=== PATIENT | female | born 1995 | race Caucasian/White ===

== ENCOUNTER 2025-06-11 10:00 | Emergency (ER) | payer OTHER, SELFPAY ==
--- OUTSIDE RECORDS SUMMARY | 2025-05-06 11:15 | XMS_ITS | Encounter Summary ---
Author Organization [employer] tem Address [id number] [address] [place] [address] Care Team Providers Care Bank Boss Name Role Phone Helene Shoemaker Primary Care Provide r Reason for Referral * Diagnostic Imaging (Routine) - Denied Specialty Diagnoses / Procedures Referred By Contac t Referred To Contact Radiology Diagnoses Chronic bilateral low back pain with bilateral sciatica Procedures MR lumbar spine without contrast Helene Shoemaker APRN-CNP [address] [place] [address] Phone: tel: fax: Referral ID Status Reason Start Date Expiration Date Visits Re quested Visits Authorized [id number] Denied 05/06/2025 05/06/2026 1 0 * Consultation (Routine) - Pending Review Specialty Diagnoses / Procedures Referred By Contac t Referred To Contact Vascular Surgery Diagnoses Varicose veins of leg with pain, bilateral Helene Shoemaker APRN-CNP [address] [place] [address] Phone: tel: fax: Vera Baca, [place] [address] Phone: tel:[phone] fax: Referral ID Status Reason Start Date Expiration Date Visits Requested Visits Authorized [id number] Pending Review Specialty Services Required 05/06/2025 05/06/2026 1 1 * Vascular (Routine) - Closed Specialty Diagnoses / Procedures Referred By Mya pittman Referred To Contact Diagnoses Varicose veins of leg with pain, bilateral Procedures Vas venous duplex insufficiency lwr bi Helene Shoemaker APRN-CNP [address] [place] [address] Phone: tel: fax: Referral ID Status Reason Start Date Expiration Date Visits Re quested Visits Authorized [id number] Closed 05/06/2025 05/06/2026 1 1 Reason for Visit * Reason Comments Nasal Congestion Medication is not he lping. Leg Injury Right leg veins swol tammi and get hot. Encounter Details Date Type Department Care Team (Late st Contact Info) Description 05/06/2025 11:15 AM EDT Office Visit [facility] [address] [place] [id number] Helene Shoemaker APRN-CNP [address], [place] [id number] Nasal congestion (Primary Dx); Varicose veins of leg with pain, bilateral; Chronic bilateral low back pain with bilateral sciatica Social History Tobacco Use Types Packs/Day Years Used Date Smoking Tobacco: Never Smokeless Tobacco: Never Alcohol Use Standard Drinks/Week Comments Not Currently 0 (1 standard drink = 0.6 oz pur e alcohol) occasionally AUDIT-C Answer Date Recorded Frequency of Alcohol Consumption Never 09/29/2019 Average Number of Drinks Not on file 020 Frequency of Binge Drinking Not on file 08/2019 PHQ-2 Answer Date Recorded Total Score 0 05/06/2025 Childcare Answer Date Recorded Childcare Unknown 02/08/2019 Employment Answer Date Recorded Employment Unknown 02/08/2019 Hunger Screening Answer Date Recorded Within the past 12 months we worried whether our food would run out before we got money to buy more. Never True 05/06/2025 Within the past 12 months th e food we bought just didn't last and we didn't have money to get more. Never True 05/06/2025 Purpose - Life Answer Date Recorded Purpose and direction in life Unknown Comments No Sex and Gender Information Value Date Recorded Sex Assigned at Not on file Legal Sex Female 3:24 PM EDT Gender Identity Not on file Sexual Orientation Not on file documented as of this encounter Last Filed Vital Signs Vital Sign Reading Time Taken Comments Blood Pressure 116/62 05/06/2025 11:12 AM EDT Pulse 79 05/06/2025 11:12 AM EDT Temperature 37.1 C (98.8 F) 05/06/2025 11:12 AM EDT Respiratory Rate - - Oxygen Saturation 98% 05/06/2025 11:12 AM EDT Inhaled Oxygen Concentration - - Weight 92.6 kg (204 lb 3.2 oz) 05/06/2025 11:12 AM EDT Height 165.1 cm (5' 5 ) 05/06/2025 11:12 AM EDT Body Mass Index 33.98 05/06/2025 11:12 AM EDT documented in this encounter Patient Instructions * Attachments The following attachments cannot be sent through Care Everywhere. * Treatment of Varicose Veins of the Leg (Azeri) documented in this encounter Progress Notes * Helene Shoemaker APRN-ISAAC - 05/06/2025 11:15 AM EDT Images from the original note were not included. [id number] [facility] [id number] SUBJECTIVE: Patient ID: Alice Hurd is a 29 y.o. female. Patient presents to the office for complaints of nasal congestion. States flonase is not helping but has not been tucking her chin when using the flonase, will also have her add zyrtec, if not improvement will send to ENT. She also has complaints of varicose veins in her bilateral thighs worse on the right and at times it is painful and feels hot. Will get venous insufficiency studies and refer to vascular. She also complains of numbness in her legs when she gets on the floor to play with her children or she kneels down. Has lower back pain for awhile and went to PT in August but felt it didnot help so she stopped going. Will get MRI of lumbar spine to rule out spinal stenosis. Nasal Congestion Associated symptoms include congestion. Pertinent negatives include no coughing, ear pain, neck pain, shortness of breath, sinus pressure or sore throat. The following portions of the patient's history were reviewed and updated as appropriate: allergies, current medications, past family history, past medical history, past social history, past surgicalhistory and problem list. REVIEW OF SYSTEMS: Review of Systems Constitutional: Negative for fatigue, fever and unexpected weight change. HENT: Positive for congestion. Negative for ear pain, sinus pressure, sinus pain and sore throat. Eyes: Negative for photophobia, pain, discharge and visual disturbance. Respiratory: Negative for cough and shortness of breath. Cardiovascular: Negative for chest pain, palpitations and leg swelling. Gastrointestinal: Negative for abdominal pain, diarrhea, nausea and vomiting. Endocrine: Negative for polydipsia, polyphagia and polyuria. Genitourinary: Negative for difficulty urinating, frequency, hematuria and urgency. Musculoskeletal: Positive for back pain. Negative for arthralgias, gait problem, joint swelling andneck pain. Skin: Negative for pallor and rash. Neurological: Positive for numbness. Negative for dizziness, weakness and light-headedness. Psychiatric/Behavioral: Negative for sleep disturbance. The patient is not nervous/anxious. PHYSICAL EXAMINATION: Vitals: 05/06/25 1112 BP: 116/62 Pulse: 79 Temp: 37.1 ??C (98.8 ??F) TempSrc: Temporal SpO2: 98% Weight: 92.6 kg (204 lb 3.2 oz) Height: 165.1 cm (5' 5 ) Physical Exam Constitutional: Appearance: She is well-developed. HENT: Head: Normocephalic and atraumatic. Right Ear: External ear normal. Left Ear: External ear normal. Nose: Congestion present. Eyes: Conjunctiva/sclera: Conjunctivae normal. Pupils: Pupils are equal, round, and reactive to light. Cardiovascular: Rate and Rhythm: Normal rate and regular rhythm. Heart sounds: Normal heart sounds. Pulmonary: Effort: Pulmonary effort is normal. Breath sounds: Normal breath sounds. Musculoskeletal: Cervical back: Normal range of motion. Skin: General: Skin is warm and dry. Comments: Varicosities on right lateral thigh Neurological: Mental Status: She is alert and oriented to person, place, and time. Psychiatric: Mood and Affect: Mood normal. ASSESSMENT/PLAN: Alice was seen today for nasal congestion and leg injury. Diagnoses and all orders for this visit: Nasal congestion Varicose veins of leg with pain, bilateral - Vas venous duplex insufficiency lwr bi; Future - [facility] [place], [place]; Future Chronic bilateral low back pain with bilateral sciatica - MR lumbar spine without contrast; Future Other orders - cetirizine (ZyrTEC) 10 mg tablet; Take 1 tablet (10 mg total) by mouth in the morning. Follow-up: Zyrtec and flonase Venous insufficiency studies-will call with results Referral vascular MRI lumbar spine-will call with results Follow up with routine appointment Patient noted to have elevated BMI and the following intervention(s) were applied: encouragement toexercise. KHADAR Bennett 05/06/25 1230 * Trudy Main CMA - 05/06/2025 11:15 AM EDT Mri denied because she did not due six weeks of PT. Placed order, will need to complete the six weeks in order to get the MRI. Patient has started PT and will call at 6 wks if pain has not improved. documented in this encounter Plan of Treatment Upcoming Encounters Date Type Department Care Team (Late st Contact Info) Description 06/18/2025 8:30 AM EDT Telemedicine [facility] Neurology, A Department of [facility] [address] [facility] [employer] [address] [address] Olena Joseph APRN-CNP [address] [employer] [address] [id number] 09/23/2025 11:00 AM EST Office Visit [facility] [place] [address] [place] [address] Vera Baca, DO [address] [facility] [address] [place] [address] Scheduled Orders Name Type Priority Associated Diagnoses Orde r Schedule MR lumbar spine without contrast Imaging Routine Chronic bilateral low back pain with bilateral sciatica Expected: 07/29/2025, Expires: 05/06/2026 Scheduled Referrals Name Type Priority Associated Diagnoses Order Schedule [facility] [place], [place] Outpatient Referral Routine Varicose veins of leg with pain, bilateral 1 Occurrences starting 05/06/2025 until 05/06/2026 documented as of this encounter Results * Vas venous duplex insufficiency lwr bi (05/31/2025 2:17 PM EDT) Anatomical Region Laterality Modality Vascular Bilateral Ultrasound 05/31/2025 2:33 PM EDT Narrative 05/31/2025 2:47 PM EDT Right: Lower extremity deep veins are compressible with spontaneous phasic spectral Doppler waveforms; superficial veins are compressible without intraluminal content. Saphenopopliteal junction was not visualized, intersaphenous vein was noted. Venous reflux time >1000 ms is noted in the common femoral vein. Saphenofemoral junction was noted with reflux time >500 ms. Accessory saphenous vein with 9213 ms reflux time in the thigh with diameter of 4.7 mm with 5.5 cm straight segment from SFJ with associated varicose veins through the anterolateral thigh, extending down into the calf. Left: Lower extremity deep veins are compressible with spontaneous phasic spectral Doppler waveforms; superficial veins are compressible without intraluminal content. Saphenopopliteal junction noted. Venous reflux time >1000 ms is noted in the popliteal vein. Saphenofemoral junction was noted with reflux time >500 ms. Great saphenous vein with 567 ms reflux time in the mid medial calf. Saphenopopliteal and multilevel small saphenous vein reflux >500 ms. Gis Specialist vein with 800 ms reflux time and 4.9 mm diameter noted in the mid posterior calf. General: This examination was performed in the upright position. Conclusions: BILATERAL:No evidence of deep or superficial vein thrombosis of the lower extremity.RIGHT:Common femoral deep vein reflux.Saphenofemoral junction and associated anterior saphenous superficial vein reflux.LEFT:Saphenofemoral junction and great saphenous superficial vein reflux.Saphenopopliteal junction, small saphenous, superficial vein reflux.Popliteal deep vein reflux.Gis Specialist vein reflux in the mid posterior calf. Procedure Note Mendoza Solano MD - 05/31/2025 Right: Lower extremity deep veins are compressible with spontaneous phasicspectral Doppler waveforms; superficial veins are compressible withoutintraluminal content. Saphenopopliteal junction was not visualized,intersaphenous vein was noted. Venous reflux time >1000 ms is noted in the common femoral vein. Saphenofemoraljunction was noted with reflux time >500 ms. Accessory saphenous vein [id number] ms reflux time in the thigh with diameter of 4.7 mm with 5.5 cmstraight segment from SFJ with associated varicose veins through the anterolateral thigh, extending downinto the calf. Left: Lower extremity deep veins are compressible with spontaneous phasicspectral Doppler waveforms; superficial veins are compressible withoutintraluminal content. Saphenopopliteal junction noted. Venous reflux time>1000 ms is noted in the popliteal vein. Saphenofemoral junction was noted with reflux time >500 ms. Greatsaphenous vein with 567 ms reflux time in the mid medial calf.Saphenopopliteal and multilevel small saphenous vein reflux >500 ms.Gis Specialist vein with 800 ms reflux time and 4.9 mm diameter noted in the mid posterior calf. General: This examination was performed in the upright position. Conclusions: BILATERAL:No evidence of deep or superficial vein thrombosisof the lower extremity.RIGHT:Common femoral deep veinreflux.Saphenofemoral junction and associated anterior saphenoussuperficial vein reflux.LEFT:Saphenofemoral junction and great saphenous superficial vein reflux.Saphenopopliteal junction, smallsaphenous, superficial vein reflux.Popliteal deep vein reflux.Perforatorvein reflux in the mid posterior calf. Helene Shoemaker SNACK STEWARD-BOOM TRUCK DRIVER CV VASCULAR ORDERABLE S Final Result documented in this encounter Visit Diagnoses Diagnosis Nasal congestion- Primary Other diseases of nasal cavity and sinuses Varicose veins of leg with pain, bilateral Chronic bilateral low back pain with bilateral sciatica Varicose veins of leg with pain, bilateral documented in this encounter Additional Health Concerns Assessment Noted Time PHQ-9 Depression Total Score: 0 05/06/20 11:12 AM EDT A Body Mass Index follow-up plan has been documented for the patient 05/06/2025 12:30 PM EDT documented as of this encounter Care Teams Bank Boss Relationship Specialty Start Date End Date Helene Shoemaker APRN-BOOM TRUCK DRIVER [address] [place] [address] PCP - General Family Medicine 02/05/25 documented as of this encounter
--- OUTSIDE RECORDS SUMMARY | 2025-05-31 12:54 | XMS_ITS | Encounter Summary ---
Author Organization [facility] tem Address [id number] [address] [place] [address] Care Team Providers Care Colon Therapist Name Role Phone Helene Shoemaker Primary Care Provide r Reason for Referral * Vascular (Routine) - Closed Specialty Diagnoses / Procedures Referred By Mya t Referred To Contact Diagnoses Varicose veins of leg with pain, bilateral Procedures Vas venous duplex insufficiency lwr bi Helene Shoemaker APRN-CNP [address] [place] [address] Phone: tel: fax: Referral ID Status Reason Start Date Expiration Date Visits Re quested Visits Authorized [id number] Closed 05/06/2025 05/06/2026 1 1 Reason for Visit * Vascular (Routine) - Closed Specialty Diagnoses / Procedures Referred By Mya pittman Referred To Contact Diagnoses Varicose veins of leg with pain, bilateral Procedures Vas venous duplex insufficiency lwr bi Helene Shoemaker APRN-CNP [address] [place] [address] Phone: tel: fax: Referral ID Status Reason Start Date Expiration Date Visits Re quested Visits Authorized [id number] Closed 05/06/2025 05/06/2026 1 1 Encounter Details Date Type Department Care Team (Latest Contact Info) Description 05/31/2025 12:54 PM EDT - 05/31/2025 11:59 PM EDT Hospital Encounter [facility] - Vascular [address] [place] [address] Varicose veins of leg with pain, bilateral Discharge Disposition: Home Social History Tobacco Use Types Packs/Day Years [...] on file documented as of this encounter Medications at Time of Discharge AJOVY AUTOINJECTOR 225 mg/1.5 mLIndications:Migrai ne without aura and without status migrainosus, not intractable,Vestibul ar migraine,Migraine variant Inject 1.5 mL (225 mg total) under the skin every 28 days. 1.5 mL 11 03/18/2025 clindamycin (CLEOCIN T) 1 % lotion APPLY 1 GRAM TO FACE TWICE DAILY 04/09/2025 fluticasone propionate (FLONASE) 50 mcg/actuation nasal spray INSTILL 1 SPRAY INTO EACH NOSTRIL IN THE MORNING 48 mL 1 12/13/2024 rimegepant (NURTEC ODT) 75 mg disintegrating tabletIndications:Mi graine without aura and without status migrainosus, not intractable,Vestibul ar migraine,Migraine variant Dissolve 1 tablet (75 mg total) on tongue daily as needed (migraine). 8 tablet 11 03/18/2025 cetirizine (ZyrTEC) 10 mg tablet Take 1 tablet (10 mg total) by mouth in the morning. 30 tablet 2 05/06/2025 documented as of this encounter Plan of Treatment Upcoming Encounters Date Type Department Care Team (Late st Contact Info) Description 06/18/2025 8:30 AM EDT Telemedicine [facility] Neurology, A Department of [facility] [address] [address] Olena Joseph, MANAGER GLOBAL-OUTSOLE ROUNDER [address] [address] 09/23/2025 11:00 AM EST Office Visit [facility] [address] [address] Vera Baca, [address] [facility] [address] [place] [id number] documented as of this encounter Procedures Procedure Name Priority Date/Time Associated Diagnosis Comments VASC VENOUS DUPLEX INSUFFICIENCY LOWER BILATERAL Routine 05/31/2025 2:17 PM EDT Varicose veins of leg with pain, bilateral documented in this encounter Results * Vas venous duplex [...] multilevel small saphenous vein reflux >500 ms. Rehabilitation Manager vein with 800 ms reflux time and [...] small saphenous, superficial vein reflux.Popliteal deep vein reflux.Rehabilitation Manager vein reflux in the mid posterior calf. Procedure Note Mendoza Solano MD - 05/31/2025 Right: Lower extremity deep veins are compressible with spontaneous phasicspectral Doppler waveforms; superficial veins are compressible withoutintraluminal content. Saphenopopliteal junction was not visualized,intersaphenous vein was noted. Venous reflux time >1000 ms is noted in the common femoral vein. Saphenofemoraljunction was noted with reflux time >500 ms. Accessory saphenous vein [id number] ms reflux time in the thigh with [...] and multilevel small saphenous vein reflux >500 ms.Rehabilitation Manager vein with 800 ms reflux time and [...] reflux.Perforatorvein reflux in the mid posterior calf. us Helene Shoemaker APRN-ISAAC CV VASCULAR ORDERABLE S Final Result documented in this encounter Visit Diagnoses Diagnosis Varicose veins of leg with pain, bilateral documented in this encounter Additional Health Concerns Assessment Noted Time PHQ-9 Depression Total Score: 0 05/06/20 11:12 AM EDT A Body Mass Index follow-up plan has been documented for the patient 05/06/2025 12:30 PM EDT documented as of this encounter Care Teams Colon Therapist Relationship Specialty Start Date End Date Helene Shoemaker APRN-CNP [address] [place] [address] PCP - General Family Medicine 02/05/25 documented as of this encounter
--- OUTSIDE RECORDS SUMMARY | 2025-06-06 10:20 | XMS_ITS | Continuity of Care Document ---
Author Organization [facility] Address [address] [place] [address] Phone Care Team Providers Care Flamer After Lasting Name Role Phone Alma Newton DO Primary Care Provider Danii Gonzales APRN Attending Provider [phone] Varsha Lopez APRN Attending Provider Care Teams Patient Care Team Team Status: Active Member Role Status Dates Alma Newton DO Primary Care Provider Active Visit Care Team Team Status: Inactive Member Role Status Dates Alma Newton DO Primary Care Provider Active Start: March 14, 2025 End: March 14, 2025 Danii Gonzales APRN Attending Provider Active Start: March 14, 2025 End: March 14, 2025 Patient Care Team Team Status: Inactive Member Role Status Dates Alma Newton DO Primary Care Provider Active Start: June 06, 2025 End: June 06, 2025 Varsha Lopez APRN Attending Provider Active Start: June 06, 2025 End: June 06, 2025 Chief Complaint and Reason for Visit Chief Complaint Admit Date Front right lower tooth pain March 14, 2025 4:00pm Sore throat June 06, 2025 1: 55pm Reason for Visit Admit Date Tooth pain March 14, 2025 4:00 pm Allergies, Adverse Reactions, Alerts Allergen Type Severity Reaction Last Updated Verified Status No Known Allergies Allergy Unknown June 06, 2025 1:5 7pm Yes Active Social History Smoking Status Status Start Date End Date Date of Observa tion Never smoked tobacco (finding) May 08, 2024 3:39pm Observation Status Observation Response Date of Response Legal Sex Female (finding) Sex Assigned At Female 1995 Problems Active Problems Medical Problem Onset Date Status History of migraine Unknown Active Influenza A Unknown Active Dizziness Unknown Active Depression Unknown Active Acute nasopharyngitis Unknown Active Acute bacterial pharyngitis Unknown Acti ve Medications Medication Status Dose Units Route Directions Qty Days St art Date Stop Date End Date Instructions Adherence Bupropion Hcl 150 mg tablet extended release 24 hr Active MG PO Octobe r 2024 12:00a m Complies with drug therapy Rimegepant (Nurtec Odt) 75 mg tablet,disi ntegrating Active 75 MG PO as needed Octobe r 2024 12:00a m Complies with drug therapy Ubrogepant (Ubrelvy) 100 mg tablet Discont inued MG PO January 07, 2025 12:00a m January 07, 2025 9:13a m Amitriptyli ne 10 mg tablet Discont inued MG PO January 07, 2025 12:00a m March 14, 2025 4:04p m Amoxicillin 400 mg/5 mL suspension for reconstitut ion Discont inued 500 MG PO Twice daily 125 10 January 07, 2025 12:00a m March 14, 2025 4:00p m Amoxicillin 400 mg/5 mL suspension for reconstitut ion Discont inued 1000 MG PO Twice daily 250 10 March 14, 2025 12:00a m Octob er 2024 2:02p m Procedures Procedure Date Performed Status Quick Strep (POC) June 06, 2025 completed Relevant Diagnostic Tests and/or Laboratory Data Microbiology Results Procedure Source Result Collection Date/Time Result Date/Time Result Comment Performing Site Quick Strep (POC) Throat June 06, 2025 2:04pm June 06, 2025 2:13pm Vital Signs Vital Reading Result Reference Range Collection Date/Time Height 65 [in_i] March 14, 2025 4:04pm Weight 90.03 kg March 14, 2025 4:04pm Body Temperature 98.6 [degF] 97.6-99.0 March 14, 2025 4:04pm Heart Rate 98 /min 60-100 March 14, 2025 4:04pm Respiratory rate 19 /min 12-March 14, 2025 4:04pm Oxygen saturation by Pulse oximetry 97 % 95-100 March 14, 2025 4:04 pm BP Systolic 122 mm[Hg] 100-140 March 14, 2025 4:04pm BP Diastolic 88 mm[Hg] 60-100 March 14, 2025 4:04pm BMI (Body Mass Index) 33.0 kg/m2 February 262024 4:04pm Height 65 [in_i] June 06 2:00pm Weight 92.98 kg June 06 2:00pm Body Temperature 97.9 [degF] 97.6-99.0 May 2:00pm Heart Rate 83 /min 60-100 June 06 2:00pm Respiratory rate 16 /min 12-24 May 2:00pm Oxygen saturation by Pulse oximetry 98 % 95-100 June 06, 2025 2: 00pm BP Systolic 104 mm[Hg] 100-140 June 06 2:00pm BP Diastolic 65 mm[Hg] 60-100 June 06 2:00pm BMI (Body Mass Index) 34.1 kg/m2 Octobe r 2024 2:00pm Advance Directives Advance Directive Response Recorded Date/ Time Advance Directives No April 3:29pm Insurance Providers Guarantor Alice Hurd Address [address] [place] [address] [place] [address] Contact Info. Home Phone: Payer Policy Id Subscriber's Name Subscriber Id Effective Date Expiration Date [employer] [id number] Alice Hurd [id number] Encounters Encounter Location(s) Arrival/Admit Date Discharge/Depart Date Provider(s) Departed Physician/Prov ider Office Visit -[facility] [place] March 14, 2025 4:00pm March 14, 2025 4:08pm Danii Gonzales APRN Departed Physician/Prov ider Office Visit -[facility] [place] June 06, 2025 1:55pm June 06, 2025 2:18pm Gray Mcneill APRN Recent Diagnosis Onset Date Admit Date Tooth pain Unknown March 14, 2025 4:00pm Assessments Diagnosis Onset Date Resolution Status Admit Date Tooth pain noneactive March 14 4:00pm Plan of Treatment Author Danii Gonzales [facility] Authored March 14, 2025 5:11 pm Discussed diagnosis with pat ron with patient today in office. Will treat with antibiotic. Reviewed allergies and recent antibiotic use with patient. Advised patient to take medication as directed, finish entire course, take with food and plenty of water. Encouraged warm salt water gargles, ice to area, ensure thin cloth barrier between skin, Tylenol/Motrin for pain, OTC topical medications such as Orajel. Advised to call dentist for follow-up appointment. Discussed S/S of worsening infection would will require immediate evaluation in ER. Patient verbalized understanding and agrees with treatment plan. Future Tests Future scheduled test information is unavailable Pending Tests Pending diagnostic test information is unavailable Future Visits Future appointment information is unavailable Referrals to Other Providers Referral information is unavailable Future Procedures Future procedure information is unavailable Future Medications Future medication information is unavailable Patient Instructions Patient instructions are unavailable
--- OUTSIDE RECORDS SUMMARY | 2025-06-10 09:00 | XMS_ITS | Encounter Summary ---
Author Organization [facility] Address [id number] [address] [place] [address] Care Team Providers Care Director Operations Broadcast Name Role Phone Helene Shoemaker NETWORK OPERATIONS MANAGER-[employer] BUSINESS INTELLIGENCE CONSULTANT Primary Care Provide r Reason for Visit * Reason Comments Varicose Veins New patient - testin g done * Consultation (Routine) - Pending Review Specialty Diagnoses / Procedures Referred By Mya pittman Referred To Contact Vascular Surgery Diagnoses Varicose veins of leg with pain, bilateral Helene Shoemaker APRN-S[employer] BUSINESS INTELLIGENCE CONSULTANT [address] [place] [address] Phone: tel: fax: Vera Baca DO [address] [place] [address] Phone: tel: fax: Referral ID Status Reason Start Date Expiration Date Visits Requested Visits Authorized [id number] Pending Review Specialty Services Required 05/06/2025 05/06/2026 1 1 Encounter Details Date Type Department Care Team (Latest Contact Info) Description 06/10/2025 9:00 AM EDT [facility] [address] [place] [address] Brooks Sim, NETWORK OPERATIONS MANAGER-[employer] BUSINESS INTELLIGENCE CONSULTANT [address] [facility] [place] [address] Venous insufficiency of lower extremity (Primary Dx); Varicose veins of leg with pain, bilateral Social History Tobacco Use Types Packs/Day Years Used Date Smoking Tobacco: Never Smokeless Tobacco: Never Tobacco Cessation:Counseling Given: Not Answered Alcohol Use Standard Drinks/Week Comments Not Currently [...] Sign Reading Time Taken Comments Blood Pressure 106/59 06/10/2025 9:16 AM EDT Pulse 76 06/10/2025 9:16 AM EDT Temperature - - Respiratory Rate - - Oxygen Saturation - - Inhaled Oxygen Concentration - - Weight 91.2 kg (201 lb) 06/10/2025 9:16 AM EDT Height - - Body Mass Index 33.45 05/06/2025 11:12 AM EDT documented in this encounter Progress Notes * Brooks Sim APRN-ISAAC - 06/10/2025 9:00 AM EDT Images from the original note were not included. [facility] [place] Irene [facility] [phone] Alice Hurd presents with discomfort in thier right lower extremity. These symptoms haveworsened the more she is on them. She states it is worse at the end of the day and intermittently relieved with rest and elevation. She describes her symptoms that include but not limited to feeling achy, itching, heaviness and occasional burning. They have have not compression therapy in the past to assist in the management of their symptoms. We did discuss today the function of the venous system and the differences between the deep and superficial system. We also discussed the recommended treatment for venous reflux includes compression therapy and elevation. If compression therapy fails to manage their symptoms or they worsen, there are possible interventions. Did recently have a venous insufficiency study completed prior to today's visit. The study does reflect significant reflux/insufficiency in the left saphenopopliteal junction,as well as deep system reflux in the popliteal. The right side did reveal saphenofemoral junction and accessory saphenous vein reflux with a prominent diameter of 4.7 mm. We did discuss possible intervention options for the right accessory saphenous vein with multiple phlebectomy and left saphenopopliteal junction. Chief Complaint Patient presents with Varicose Veins New patient - testing done Patient Active Problem List Diagnosis Delivery by section of full-term infant Nasal congestion Single delivery by Cervicalgia Chronic daily headache Trapezius muscle spasm Tension headache Migraine without aura and without status migrainosus, not intractable Migraine variant Vestibular migraine Anxiety Herpesviral infection, unspecified Insomnia LGSIL on Pap smear of cervix Mixed anxiety and depressive disorder Muscle spasm Varicose veins of leg with pain, bilateral Venous insufficiency of lower extremity BP 106/59 Pulse 76 Wt 91.2 kg (201 lb) BMI 33.45 kg/m?? Past Medical History: Diagnosis Date Anxiety Depression Rosacea Scoliosis Seasonal allergies Past Surgical History: Procedure Laterality Date N/A 07/28/2018 Performed by Fiordaliza Lopez MD at [facility] OR REPEAT. removal left peritubal cyst N/A 08/11/2022 Performed by Pricila Tian MD at [facility] OR Allergies: Allergies Allergen Reactions [id number] Antimigraine Agents History of hemiplegic/complex migraines. We do not want to constrict her blood vessels and cause her to have a stroke. Current Medications: Current Outpatient Medications Medication Sig Dispense Refill fluticasone propionate (FLONASE) 50 mcg/actuation nasal spray INSTILL 1 SPRAY INTO EACH NOSTRIL IN THE MORNING 48 mL 1 rimegepant (NURTEC ODT) 75 mg disintegrating tablet Dissolve 1 tablet (75 mg total) on tongue dailyas needed (migraine). 8 tablet 11 AJOVY AUTOINJECTOR 225 mg/1.5 mL Inject 1.5 mL (225 mg total) under the skin every 28 days. (Patient not taking: Reported on 06/10/2025) 1.5 mL 11 cetirizine (ZyrTEC) 10 mg tablet TAKE 1 TABLET (10 MG TOTAL) BY MOUTH IN THE MORNING (Patient not taking: Reported on 06/10/2025) 90 tablet 1 clindamycin (CLEOCIN T) 1 % lotion APPLY 1 GRAM TO FACE TWICE DAILY (Patient not taking: Reported on 06/10/2025) No current facility-administered medications for this visit. REVIEW OF SYSTEMS: All systems reviewed during the visit. PHYSICAL EXAM: prominent veins on the right sided Dorsalis pedis and posterior tibial pulses are palpable. Skin is warm, dry and intact. 2+ edema noted bilaterally. Right upper outer thigh with prominent varicosities The follow tests were evaluated and include: CEAP classification (note all that apply or n/a): C2-C3,S CEAP - Clinical class Right Left C0 - No visible or palpable signs of venous disease C1 - Telangiectasias or reticular veins C2 - Varicose veins x x C3 - Edema x C4a - Pigmentation or eczema C4b - Lipodermatosclerosis or atrophie jose C5 - Healed venous ulcer C6 - Active venous ulcer) S or A - Symptomatic, i.e. ache, pain, tightness, skin irritation, heaviness, muscle cramps, other complaints attributable to venous dysfunction vs. asymptomatic. S Venous clinical severity score (VCSS)--none: 0, mild: 1, moderate: 2, severe: 3. Right Left Pain (0- none, 1- occasional pain, not restricting activity, 2- daily pain, interferes with but doesn't prevent regular activity, 3- daily pain, limits most regular daily activity. 2 0 Varicose veins (>/= 3 mm) 0- none, 1 - few scattered, isolated clusters, clements phlebectatica, 2- confined to calf or thigh, 3- involves calf and thigh. 3 1 Venous edema 0- none, 1- limited to foot and ankle, 2- extends above ankle but below knee, 3- extends to knee and above. 1 1 Skin pigmentation (NOT localized over vv) 0- none, 1- limited to perimalleolar area, 2- diffuse over lower third of calf, 3- wider distribution above lower third of calf. 0 0 Inflammation (i.e. erythema, cellulitis, venous eczema, dermatitis) 0- none, 1- limited to perimalleolar area, 2- diffuse over lower third of calf, 3- wider distribution above lower third of calf 0 0 Induration (i.e. fibrosis, atrophie jose, LDS) 0- none, 1- limited to perimalleolar area, 2- diffuse over lower third of calf, 3- wider distribution above lower third of calf. 0 0 Active ulcer number- 0- none, 1, 2, >/= 3 Active ulcer duration- < 3 mo (1), > 3 mo < 1 y (2), not healed > 1 y (3) Active ulcer size- diameter < 2 cm (1) , 2-6 cm (2), > 6 cm (3) 0 0 Use of compression therapy 0- not used, 1- intermittent use, 2- wears most days, 3- full compliance 0 0 VCSS summary: right le, left le. Assessment: Encounter Diagnoses Name Primary? Varicose veins of leg with pain, bilateral Venous insufficiency of lower extremity Yes Plan of care: I discussed the diagnosis with the patient and addressed their questions and concerns. I recommended compression shorts and thigh-high stockings with at least 20-30 mmHg pressure. We discussed the benefits of elevating the legs as much as they are able throughout the day. We will see them back in the office 2-3 months to discuss compression therapy compliance. All questions were answered and the patient was advised to contact the office with any new questions or concerns. KHADAR Atkinson Please note that total time spent preparing for today's office visit was 10-15 minutes: This included, but not limited to review of testing, procedures, medications and obtaining and/or reviewing separately obtained history. This note was created with the assistance of a speech-recognition program. Although the intention is to generate a document that accurately reflects the content of the visit, no guarantees can be provided that every mistake/misinterpretation has been identified and corrected by editing. KHADAR Quinteros 06/10/25 0944 documented in this encounter Plan of Treatment Upcoming Encounters Date Type Department Care Team (Late st Contact Info) Description 06/18/2025 8:30 AM EDT Telemedicine [facility] Department of [facility] [address] [phone] Olena Joseph APRN-CNP [address] [phone] 09/23/2025 11:00 AM EST [facility] [address] [place] [address] [place] [address] [place] [address] [place] [phone] documented as of this encounter Visit Diagnoses Diagnosis Venous insufficiency of lower extremity- Primary Varicose veins of leg with pain, bilateral documented in this encounter Additional Health Concerns Assessment Noted Time PHQ-9 Depression Total Score: 0 05/06/20 11:12 AM EDT A Body Mass Index follow-up plan has been documented for the patient 05/06/2025 12:30 PM EDT documented as of this encounter Care Teams Director Operations Broadcast Relationship Specialty Start Date End Date Helene Shoemaker APRN-CNP [address] [place] [address] PCP - General Family Medicine 02/05/25 documented as of this encounter
[2025-06-11 10:07] VITALS: BP 100/69; PULSE 58; TEMP 36.8; O2SAT 100; BMI 33.3
--- NOTE | 2025-06-11 10:18 | XR_ITS ---
[facility] [place] [id number] Patient Name: SHARAD MOLINA MRN: [id number] date: 1995 Sex: F Assigned Patient Location: ED.MAIN Current Patient Location: ED.MAIN Accession/Order Number: [id number] Exam Date: 06/11/2025 10:40 Report Date: 06/11/2025 10:50 At the request of: TONYA SORIA MD Procedure: XR cervical spine 2-3V CERVICAL SPINE - 3 views: COMPARISON: None CLINICAL HISTORY: Atraumatic neck pain, greater on the left when turning head to the right for the past few days AP, lateral and odontoid views were obtained. There is straightening of the normal cervical lordosis. There is no evidence of compression fracture or displacement. Disc spaces are uniform. No significant hypertrophy is seen. The atlantoaxial relationship is maintained. There is no prevertebral soft tissue swelling. XR/XR cervical spine 2-3V IMPRESSION: STRAIGHTENING OF THE NORMAL CERVICAL CURVATURE WHICH MAY BE RELATED TO POSITIONING OR MUSCLE SPASM. NO ACUTE BONY FINDINGS. Impression dictated by: Abby Reed M.D. 06/11/2025 10:50 AM Dictation Location: [place] [address] Electronically authenticated by: [id number] Y Date: 06/11/2025 10:50
--- NOTE | 2025-06-11 10:18 | ED.GENADUL1 ---
HPI HPI - General Adult General Chief complaint: Neck Pain/Injury Stated complaint: NECK PAIN Time Seen by Provider: 06/11/25 10:03 Source: patient Mode of arrival: walk-in Limitations: no limitations History of Present Illness HPI narrative: 30-year-old female presents for pain in her neck. She has had it for 3 days but it was much worse when she awoke today. She gives no history of injury or unusual activity. Its mostly on the left side it hurts to turn her head towards the left or the right. No fever or localized weakness. Related Data Home Medications ?Medication ?Instructions ?Recorded ?Confirmed amitriptyline 10 mg tablet 5 mg PO DAILY 06/11/25 06/11/25 bupropion HCl 150 mg 24 hr tablet, 150 mg PO DAILY 06/11/25 06/11/25 extended release Previous Rx's ?Medication ?Instructions ?Recorded ibuprofen 800 mg tablet 800 mg PO Q8H PRN pain #20 tabs 06/11/25 methocarbamol 750 mg tablet 750 mg PO Q8H #20 tabs 06/11/25 Allergies Allergy/AdvReac Type Severity Reaction Status Date / Time acetaminophen (From Tylenol) AdvReac Severe stroke Verified 06/11/25 10:10 symtoms Opioid HPI Opioid Management Most Recent Opioid Data: Last Pain Scale 6 Today, 10:29 Last MAR Pain Assessment Today, 10:29 Review of Systems ROS Narrative A ten point review of systems is negative except as noted above. PFSH PFSH Social History Little interest or pleasure in doing things: not at all Feeling down, depressed, or hopeless: not at all Exam Narrative Exam Narrative: Nurses note and vital signs reviewed and patient is not hypoxic. General:The patient appears well and in no apparent distress.Patient is resting comfortably on cart. Skin:Warm, dry, no pallor noted.There is no rash noted. Head:Normocephalic, atraumatic; her neck is examined. There is no bruise rash abrasion or masses. Eye: Normal conjunctiva, no drainage Ears, Nose, Mouth, and Throat: oral mucosa is moist. Nares patent. Cardiovascular:Regular Rate and Rhythm Respiratory:Patient is in no distress, no accessory muscle use, lungs are clear to auscultation, no wheezing, rales or rhonchi Back:non-tender GI: Soft and nontender Musculoskeletal: The patient has no evidence of calf tenderness, no pitting edema, symmetrical pulses noted bilaterally Neurological: Awake and alert, upper and lower extremity strength 5 out of 5 and symmetric Psychiatric:Cooperative Constitutional Vital Signs, click to edit/add: Last Vital Signs Temp 98.2 F 06/11/25 10:07 Pulse 58 L 06/11/25 10:07 Resp 16 06/11/25 10:07 BP 100/69 06/11/25 10:07 Pulse Ox 100 06/11/25 10:07 O2 Del Method Room Air 06/11/25 10:07 Course Vital Signs Vital signs: Vital Signs Temperature 98.2 F 06/11/25 10:07 Pulse Rate 58 L 06/11/25 10:07 Respiratory Rate 16 06/11/25 10:07 Blood Pressure 100/69 06/11/25 10:07 Pulse Oximetry 100 06/11/25 10:07 Oxygen Delivery Method Room Air 06/11/25 10:07 Temperature 98.2 F 06/11/25 10:07 Pulse Rate 58 L 06/11/25 10:07 Respiratory Rate 16 06/11/25 10:07 Blood Pressure 100/69 06/11/25 10:07 Pulse Oximetry 100 06/11/25 10:07 Oxygen Delivery Method Room Air 06/11/25 10:07 Medical Decision Making MDM Narrative Medical decision making narrative: X-rays per radiologist showed no acute findings. She was given IM Toradol and Norflex and is discharged home on ibuprofen and Robaxin. Treatment diagnosis and follow-up were discussed with the patient. Differential Diagnosis Differential Diagnosis: Muscle strain, torticollis, degenerative disc disease, cervical arthritis Imaging Data X-ray C-spine: Radiologist's impression: ITS Impressions Cervical Spine X-Ray 06/11/25 10:18 IMPRESSION: STRAIGHTENING OF THE NORMAL CERVICAL CURVATURE WHICH MAY BE RELATED TO POSITIONING OR MUSCLE SPASM. NO ACUTE BONY FINDINGS. Impression dictated by: Abby Reed M.D. 06/11/2025 10:50 AM Dictation Location: [place] [address] Electronically authenticated by: [id number] Y Date: 06/11/2025 10:50 Discharge Plan Discharge Chief Complaint: Neck Pain/Injury Clinical Impression: Strain of neck muscle Patient Disposition: Home, Self-Care Time of Disposition Decision: 11:08 Condition: Good Mode of Transportation: Private Vehicle Prescriptions / Home Meds: New ibuprofen 800 mg tablet 800 mg PO Q8H PRN (Reason: pain) Qty: 20 0RF methocarbamol 750 mg tablet 750 mg PO Q8H Qty: 20 0RF No Action amitriptyline 10 mg tablet 5 mg PO DAILY bupropion HCl 150 mg tablet extended release 24 hr 150 mg PO DAILY Print Language: Kosovan Instructions: Cervical Strain (ED) Referrals: Alma Newton [Physician] - 1 week
--- OUTSIDE RECORDS SUMMARY | 2025-06-11 10:25 | XMS_ITS | Encounter Summary ---
Author Organization [facility] tem Address [id number] [address] [place] [address] Care Team Providers Care Proposal Engineer Name Role Phone Helene Shoemaker APRN-EDITOR MANAGING DIRECTOR Primary Care Provide r Encounter Details Date Type Department Care Team (Latest Contact Info) Description 05/28/2025 Travel Social History Tobacco Use Types Packs/Day Years [...] on file documented as of this encounter Plan of Treatment Upcoming Encounters Date Type Department Care Team (Late st Contact Info) Description 06/18/2025 8:30 AM EDT Telemedicine [facility] Department of [facility] [address] [phone] Olena Joseph APRN-CNP [address] [address] 09/23/2025 11:00 AM EST [facility] [place] [address] [place] [address] Vera Baca, DO [address] [facility] [address] [place] [id number] documented as of this encounter Visit Diagnoses Not on filedocumented in this encounter Additional Health Concerns Assessment Noted Time PHQ-9 Depression Total Score: 0 05/06/20 11:12 AM EDT A Body Mass Index follow-up plan has been documented for the patient 05/06/2025 12:30 PM EDT documented as of this encounter Care Teams Proposal Engineer Relationship Specialty Start Date End Date Helene Shoemaker APRN-ISAAC [address] [place], [place] [phone] PCP - General Family Medicine 02/05/25 documented as of this encounter
--- OUTSIDE RECORDS SUMMARY | 2025-06-11 10:25 | XMS_ITS | Encounter Summary ---
Author Organization [facility] tem Address [facility] [id number] [address] [place] [address] Care Team Providers Care Retread Builder Name Role Phone Helene Shoemaker MANUSCRIPTS CURATOR-SHEET WRITER Primary Care Provide r Encounter Details Date Type Department Care Team (Late st Contact Info) Description 03/12/2025 [facility] [address] [place] [address] Emilia Ureña LPN Social History Tobacco Use Types Packs/Day Years [...] PHQ-2 Answer Date Recorded Total Score 0 11/19/2024 Childcare Answer Date Recorded Childcare Unknown 02/08/2019 Employment Answer Date Recorded Employment Unknown 02/08/2019 Hunger Screening Answer Date Recorded Within the past 12 months we worried whether our food would run out before we got money to buy more. Never True 03/15/2025 Within the past 12 months th e food we bought just didn't last and we didn't have money to get more. Never True 03/15/2025 Purpose - Life Answer Date Recorded Purpose and direction in life Unknown Comments No Sex and Gender Information Value Date Recorded Sex Assigned at Not on file Legal Sex Female 3:24 PM EDT Gender Identity Not on file Sexual Orientation Not on file documented as of this encounter Miscellaneous Notes * Telephone Encounter - Emilia Ureña LPN - 03/12/2025 2:51 PM EDT Patient called asking if you could give her an antibiotic for an infected tooth. Patient stated shedoes not have the money to get it pulled and she does not have a dentist. * Telephone Encounter - KHADAR Bennett - 03/12/2025 2:51 PM EDT Sent rx * Telephone Encounter - Emilia Ureña LPN - 03/12/2025 2:51 PM EDT Patient aware documented in this encounter Plan of Treatment Upcoming Encounters Date Type Department Care Team (Late st Contact Info) Description 06/18/2025 8:30 AM EDT Telemedicine [facility] Department of [facility] [address] [address] Olena Joseph APRN-CNP [address] [phone] 09/23/2025 11:00 AM EST Office Visit [facility] [place] [address] [place] [address] Vera Baca, DO [address] [facility] [address] [place] [address] documented as of this encounter Visit Diagnoses Not on filedocumented in this encounter Additional Health Concerns Assessment Noted Time PHQ-9 Depression Total Score: 0 11/20/19 25 9:55 AM EDT A Body Mass Index follow-up plan has been documented for the patient 11/19/2024 10:48 AM EDT documented as of this encounter Care Teams Retread Builder Relationship Specialty Start Date End Date Helene Shoemaker APRN-ISAAC [address] [place] [address] PCP - General Family Medicine 02/05/25 documented as of this encounter
--- OUTSIDE RECORDS SUMMARY | 2025-06-11 10:25 | XMS_ITS | Encounter Summary ---
Author Organization [facility] tem Address [facility] [id number] [address] [place] [address] Care Team Providers Care Skiagrapher Name Role Phone Helene Shoemaker APRN-FIELD MERCHANDISER Primary Care Provide r Encounter Details Date Type Department Care Team (Latest Contact Info) Description 06/10/2025 Travel Social History Tobacco Use Types Packs/Day [...] EDT Telemedicine [facility] Department of [facility] [address] [phone] Olena Joseph APRN-CNP [address] [address] 09/23/2025 11:00 AM EST [facility] [place] [address] [place] [address] Vera Baca, DO [address] [facility] [address] [place] [address] documented as of this encounter Visit Diagnoses Not on filedocumented in this encounter Additional Health Concerns Assessment Noted Time PHQ-9 Depression Total Score: 0 05/06/20 11:12 AM EDT A Body Mass Index follow-up plan has been documented for the patient 05/06/2025 12:30 PM EDT documented as of this encounter Care Teams Skiagrapher Relationship Specialty Start Date End Date Helene Shoemaker APRN-ISAAC [address] [place], [place] [phone] PCP - General Family Medicine 02/05/25 documented as of this encounter
--- OUTSIDE RECORDS SUMMARY | 2025-06-11 10:25 | XMS_ITS | Encounter Summary ---
Author Organization [facility] tem Address [facility] [place][id number] [address] [place] [address] Care Team Providers Care Integrated Marketing Intern Name Role Phone Helene Shoemaker APRN-POWER SYSTEM ELECTRICAL ENGINEER Primary Care Provide r Encounter Details Date Type Department Care Team (Late st Contact Info) Description 06/05/2025 [facility] [address] [place] [address] Trudy Main CMA Social History Tobacco Use Types Packs/Day Years [...] encounter Miscellaneous Notes * Telephone Encounter - Trudy Main CMA - 06/05/2025 8:48 AM EDT Left message for patient regarding MRI lumbar spine placed on 05/06/25 documented in this encounter Plan of Treatment Upcoming Encounters Date Type Department Care Team (Late st Contact Info) Description 06/18/2025 8:30 AM EDT Telemedicine [facility] Department of [facility] [address] [facility] Jarvam [facility] [address] [place] [phone] Olena Joseph APRN-POWER SYSTEM ELECTRICAL ENGINEER [address] [facility] [address] [place] [address] 09/23/2025 11:00 AM EST Office Visit [facility] [place] [address] [place] [address] [place] [address] [place] [address] [place] [address] documented as of this encounter Visit Diagnoses Not on filedocumented in this encounter Additional Health Concerns Assessment Noted Time PHQ-9 Depression Total Score: 0 05/06/20 11:12 AM EDT A Body Mass Index follow-up plan has been documented for the patient 05/06/2025 12:30 PM EDT documented as of this encounter Care Teams Integrated Marketing Intern Relationship Specialty Start Date End Date Helene Shoemaker, MONIE-POWER SYSTEM ELECTRICAL ENGINEER [address] [place] [address] PCP - General Family Medicine 02/05/25 documented as of this encounter
--- OUTSIDE RECORDS SUMMARY | 2025-06-11 10:25 | XMS_ITS | Encounter Summary ---
Author Organization [facility] tem Address [facility] [id number] [address] [place] [address] Care Team Providers Care Claims Assistant Name Role Phone Helene Shoemaker FINANCE ADMINISTRATOR-EQUIPMENT OPERATION INSTRUCTOR Primary Care Provide r Encounter Details Date Type Department Care Team ([facility] Contact Info) Description 08/19/2021 Telephone [facility] [address] [place] [address] Mansi Price Social History Tobacco Use Types Packs/Day Years Used Date Smoking Tobacco: Never Smokeless Tobacco: Never Alcohol Use Standard Drinks/Week Comments Yes 0 (1 standard drink = 0.6 oz pur e alcohol) occasionally AUDIT-C Answer Date Recorded Frequency of Alcohol Consumption Never 09/29/2019 Average Number of Drinks Not on file 020 Frequency of Binge Drinking Not on file 08/2019 Childcare Answer Date Recorded Childcare Unknown 02/08/2019 Employment Answer Date Recorded Employment Unknown 02/08/2019 Purpose - Life Answer Date Recorded Purpose and direction in life Unknown Comments No Sex and Gender Information Value Date Recorded Sex Assigned at Not on file Legal Sex Female 3:24 PM EDT Gender Identity Not on file Sexual Orientation Not on file documented as of this encounter Miscellaneous Notes * Telephone Encounter - Mansi Price - 08/19/2021 9:45 AM EST Received Referral from: Alma Newton DO Dx: Dizziness Referred to: Dr. Issa documented in this encounter Plan of Treatment Upcoming Encounters Date Type Department Care Team ([facility] Contact Info) Description 06/18/2025 8:30 AM EDT Telemedicine [facility] Department of [facility] [address] [address] Olena Joseph APRN-EQUIPMENT OPERATION INSTRUCTOR [address] [address] 09/23/2025 11:00 AM EST [facility] [place] [address] [place] [address] Vera Baca, DO [address] [facility] [address] [place] [address] documented as of this encounter Visit Diagnoses Not on filedocumented in this encounter Additional Health Concerns Infection Onset Date Last Indicated Resolved Time COVID-19 Rule-Out 08/09/2022 08/09/2022 08/10/2022 1:27 AM EST documented as of this encounter Care Teams Claims Assistant Relationship Specialty Start Date End Date Helene Shoemaker, FINANCE ADMINISTRATOR-EQUIPMENT OPERATION INSTRUCTOR [address] [place], [place] [phone] PCP - General Family Medicine 02/05/25 documented as of this encounter
--- OUTSIDE RECORDS SUMMARY | 2025-06-11 10:25 | XMS_ITS | Clinical Summary ---
Author Organization [facility] tem Address [facility] [place]-[id number] [address] [place] [address] Care Team Providers Care Dictating Transcribing Machine Servicer Name Role Phone Helene Shoemaker APRN-[employer]IVERSITY DEAN Primary Care Provide r Allergies Active Allergy Reactions Criticality Noted Date Comments [id number] Antimigraine Agents High 11/20/2024 History of hemiplegic/complex migraines. We do not want to constrict her blood vessels and cause her to have a stroke. Medications * This document contains information received from the source organization and may not represent a complete record from that organization. fluticasone propionate (FLONASE) 50 mcg/actuation nasal spray INSTILL 1 SPRAY INTO EACH NOSTRIL IN THE MORNING 48 mL 1 025 Active rimegepant (NURTEC ODT) 75 mg disintegrating tabletIndications :Migraine without aura and without status migrainosus, not intractable,Vesti bular migraine,Migraine variant Dissolve 1 tablet (75 mg total) on tongue daily as needed (migraine). 8 tablet 11 025 Active AJOVY AUTOINJECTOR 225 mg/1.5 mLIndications:Sarbjit tong without aura and without status migrainosus, not intractable,Vesti bular migraine,Migraine variant Inject 1.5 mL (225 mg total) under the skin every 28 days. 1.5 mL 11 025 Active Additional Information Patient not taking.Reported on 06/10/2025 clindamycin (CLEOCIN T) 1 % lotion APPLY 1 GRAM TO FACE TWICE DAILY 025 Active cetirizine (ZyrTEC) 10 mg tablet TAKE 1 TABLET (10 MG TOTAL) BY MOUTH IN THE MORNING 90 tablet 1 025 Active Additional Information Patient not taking.Reported on 06/10/2025 cetirizine (ZyrTEC) 10 mg tablet Take 1 tablet (10 mg total) by mouth in the morning. 30 tablet 2 025 2024 Discontinued Active Problems Problem Noted Date Diagnosed Date Varicose veins of leg with pain, bilateral 06/10 Venous insufficiency of lower extremity 06/10/20 Anxiety 03/18/2025 Herpesviral infection, unspecified 03/18/2025 Insomnia 03/18/2025 LGSIL on Pap smear of cervix 03/18/2025 Mixed anxiety and depressive disorder 03/18/2025 Muscle spasm 03/18/2025 Cervicalgia 11/20/2024 Chronic daily headache 11/20/2024 Trapezius muscle spasm 11/20/2024 Tension headache 11/20/2024 Assessment & Plan (11/20/2024 2:33 PM EDT): Migraine without aura and wi thout status migrainosus, not intractable 11/20/2024 Migraine variant 11/20/2024 Vestibular migraine 11/20/2024 Single delivery by 08/11/2022 Nasal congestion 10/20/2021 Delivery by section of full-term 07/28/2018 Encounters * This document contains information received from the source organization and may not represent a complete record from that organization. Date Type Department Care Team Description 06/10/2025 9:00 AM EDT [facility] [place] [address] [place] [address] Brooks Sim, [employer] Venous insufficiency of lower extremity (Primary Dx); Varicose veins of leg with pain, bilateral 06/10/2025 Travel 06/05/2025 Telephone [facility] [address] [place] [address] Trudy Main CMA 06/03/2025 Results Follow-Up [facility] [address] [place] [address] Helene Shoemaker APRN-CNP Vas venous duplex insufficiency lwr bi 06/02/2025 Refill [facility] [place] [phone] Helene Shoemaker APRN-CNP 05/31/2025 12:54 PM EDT - 05/31/2025 11:59 PM EDT Hospital Encounter [facility] [address] [place] [phone] Varicose veins of leg with pain, bilateral Discharge Disposition: Home 05/28/2025 Travel 05/23/2025 Telephone [facility] [place] [phone] Helene Shoemaker APRN-CNP 05/06/2025 11:15 AM EDT Office Visit [facility] [address] [place], [place] [address] [place] [phone] Helene Shoemaker APRN-CNP Nasal congestion (Primary Dx); Varicose veins of leg with pain, bilateral; Chronic bilateral low back pain with bilateral sciatica 05/06/2025 Travel 03/18/2025 11:00 AM EDT Office Visit [facility], A Department of [address] [address] Olena Joseph APRN-CNP Migraine without aura and without status migrainosus, not intractable (Primary Dx); Vestibular migraine; Migraine variant; Trapezius muscle spasm; Tension headache; Chronic daily headache; Cervicalgia 03/15/2025 8:57 AM EDT - 03/15/2025 10:00 AM EDT Emergency [facility] - Emergency [address] [place] [phone] Kyra Perez DO Migraine without aura and without status migrainosus, not intractable (Primary Dx) Discharge Disposition: Home 03/15/2025 Travel 03/13/2025 Orders Only [facility] [place] [address] Helene Shoemaker, [employer] 03/12/2025 Telephone [facility] [address] [place] [address] Emilia Ureña LPN from Last 3 Months Immunizations Immunization Administration Dates Next Due COVID-19, mRNA, LNP-S, PF, 100mcg/0.5mL Dose ,01/13/2021 Family History Medical History Relation Name Comments No Known Problems Father Breast cancer Maternal Grandmother Multiple sclerosis Maternal Grandmother No Known Problems Mother Diabetes Paternal Grandmother Hypertension Paternal Grandmother Relation Name Status Comments Father Alive Maternal Grandfather Maternal Grandmother Mother Alive Paternal Grandfather Alive Paternal Grandmother Alive Social History Tobacco Use Types Packs/Day Years [...] on file Sexual Orientation Not on file Last Filed Vital Signs Vital Sign Reading Time Taken Comments Blood Pressure 106/59 06/10/2025 9:16 AM EDT Pulse 76 06/10/2025 9:16 AM EDT Temperature 37.1 C (98.8 F) 05/06/2025 11:12 AM EDT Respiratory Rate 18 03/15/2025 10:19 AM EDT Oxygen Saturation 98% 05/06/2025 11:12 AM EDT Inhaled Oxygen Concentration - - Weight 91.2 kg (201 lb) 06/10/2025 9:16 AM EDT Height 165.1 cm (5' 5 ) 05/06/2025 11:12 AM EDT Body Mass Index 33.45 05/06/2025 11:12 AM EDT Plan of Treatment Upcoming Encounters Date Type Department Care Team (Late st Contact Info) Description 06/18/2025 8:30 AM EDT Telemedicine [facility], A Department of [facility] [address] [address] Olena Joseph, [facility] [address] [address] 09/23/2025 11:00 AM EST [facility] [place] [address] [place] [address] Vera Baca, DO [address] [facility] [address] [place] [address] Health Maintenance Due Date Last Done Comments DTaP,Tdap and Td Vaccines (1 - Tdap) 2016 Pap Smear 2018 COVID-19 Vaccine (3 - season) 2025, 01/13/2021 Influenza Vaccine 04/29/2025 Adult BMI Follow Up Plan 05/06/2026 05/06/2025 Depression Screening 05/06/2026 05/06/2025 Adult BMI Screening 06/10/2026 06/10/2025 Tobacco Screening 06/10/2026 06/10/2025 Medical Devices Not on file Procedures Procedure Name Priority Date/Time Associated Diagnosis Comments VASC VENOUS DUPLEX INSUFFICIENCY LOWER BILATERAL Routine 05/31/2025 2:17 PM EDT Varicose veins of leg with pain, bilateral SST TOP Routine 03/15/2025 9:07 AM EDT LAVENDER TOP Routine 03/15/2025 9:07 AM EDT PST TOP Routine 03/15/2025 9:07 AM EDT BLUE TOP Routine 03/15/2025 9:07 AM EDT RAINBOW DRAW Routine 03/15/2025 9:07 AM EDT from Last 3 Months Results * Vas venous duplex insufficiency lwr [...] multilevel small saphenous vein reflux >500 ms. Site Coordinator vein with 800 ms reflux time and [...] small saphenous, superficial vein reflux.Popliteal deep vein reflux.Site Coordinator vein reflux in the mid posterior calf. Procedure Note Mendoza Solano MD - 05/31/2025 Right: Lower extremity deep veins are compressible with spontaneous phasicspectral Doppler waveforms; superficial veins are compressible withoutintraluminal content. Saphenopopliteal junction was not visualized,intersaphenous vein was noted. Venous reflux time >1000 ms is noted in the common femoral vein. Saphenofemoraljunction was noted with reflux time >500 ms. Accessory saphenous vein [id number] ms reflux time in the thigh with [...] and multilevel small saphenous vein reflux >500 ms.Site Coordinator vein with 800 ms reflux time and [...] in the mid posterior calf. Helene Shoemaker [employer] CV VASCULAR ORDERABLE S Final Result * SST TOP (03/15/2025 9:07 AM EDT) Extra Tube Auto Resulted 03/15/2025 11:01 AM EDT [facility] Blood Venous blood / Unknown Venipuncture / Unknown 03/15/2025 9:07 AM EDT 03/15/2025 9:10 AM EDT us Kyra Perez DO LAB BLOOD ORDERABLES Final R esult [address] [place] [address], [place] * Lavender Top (03/15/2025 9:07 AM EDT) Extra Tube Auto Resulted 03/15/2025 11:01 AM EDT [facility] Blood Venous blood / Unknown Venipuncture / Unknown 03/15/2025 9:07 AM EDT 03/15/2025 9:10 AM EDT us Kyra Perez DO LAB BLOOD ORDERABLES Final R esult Performing Organization Address City/[facility]/ZIP Co de Phone Number [address] [place] [address], [place] * PST TOP (03/15/2025 9:07 AM EDT) Extra Tube Auto Resulted 03/15/2025 11:01 AM EDT [facility] Blood Venous blood / Unknown Venipuncture / Unknown 03/15/2025 9:07 AM EDT 03/15/2025 9:10 AM EDT us Kyra Ace [place] DO LAB BLOOD ORDERABLES Final R esult [address] [place] [address], [place] * Light Blue Top (03/15/2025 9:07 AM EDT) Extra Tube Auto Resulted 03/15/2025 11:01 AM EDT [facility] Blood Venous blood / Unknown Venipuncture / Unknown 03/15/2025 9:07 AM EDT 03/15/2025 9:10 AM EDT us Kyra Perez DO LAB BLOOD ORDERABLES Final R esult [facility] [address] [place] [address], [place] from Last 3 Months Insurance [employer] Advance Directives * Full Code (Latest Code Status on File) Date Activated Date Inactivated Comments 08/11/2022 7:28 AM 08/13/2022 5:02 PM * Full Code Date Activated Date Inactivated Comments 07/28/2018 6:01 AM 07/31/2018 8:06 PM * Full Code Date Activated Date Inactivated Comments 07/22/2018 1:08 AM 07/22/2018 4:08 AM Care Teams Dictating Transcribing Machine Servicer Relationship Specialty Start Date End Date Helene Shoemaker APRN-ISAAC [address] [place] [address] PCP - General Family Medicine 02/05/25
--- OUTSIDE RECORDS SUMMARY | 2025-06-11 10:25 | XMS_ITS | Encounter Summary ---
Author Organization [facility] tem Address [facility] [id number] [address] [place] [address] Care Team Providers Care Engine Assembly Supervisor Name Role Phone Helene Shoemaker APRN-TELECOMMUNICATIONS PROFESSIONAL Primary Care Provide r Encounter Details Date Type Department Care Team (Latest Contact Info) Description 06/03/2025 Results Follow-Up [facility] [address] [place] [address] Helene Shoemaker APRN-CNP [address] [place], [place] [phone] Vas venous duplex insufficiency lwr bi Social History Tobacco Use Types Packs/Day Years [...] encounter Miscellaneous Notes * Telephone Encounter - Josefina Guerra CMA - 06/03/2025 6:27 AM EDT ----- Message from KHADAR Bennett sent at 06/03/2025 6:27 AM EDT ----- Has venous insufficiency suggest vascular consult. ----- Message ----- From: Interface - Cv Results/Orders In 1 Sent: 05/31/2025 2:48 PM EDT To: KHADAR Bennett * Telephone Encounter - Josefina Guerra CMA - 06/03/2025 6:27 AM EDT Patient informed. She has appt. With Vascular on 06/10. documented in this encounter Plan of Treatment Upcoming Encounters Date Type Department Care Team (Late st Contact Info) Description 06/18/2025 8:30 AM EDT Telemedicine [facility] Department of [facility] [address] [address] Olena Joseph APRN-CNP [address] [address] 09/23/2025 11:00 AM EST Office Visit [facility] [place] [address] [place] [address] [place] [address] [place] [address] documented as of this encounter Visit Diagnoses Not on filedocumented in this encounter Additional Health Concerns Assessment Noted Time PHQ-9 Depression Total Score: 0 05/06/20 11:12 AM EDT A Body Mass Index follow-up plan has been documented for the patient 05/06/2025 12:30 PM EDT documented as of this encounter Care Teams Engine Assembly Supervisor Relationship Specialty Start Date End Date Helene Shoemaker APRN-ISAAC [address] [facility] [place] [address] PCP - General Family Medicine 02/05/25 documented as of this encounter
--- OUTSIDE RECORDS SUMMARY | 2025-06-11 10:25 | XMS_ITS | Patient Health Record ---
Author Organization Formerly [facility], [facility] vices Address [address] [place], [place] [id number] Care Team Providers Care Die Repair Machinist Name Role Phone Lary Irving Primary Care Provider [phone] Allergies No Known Allergies Reason For Referral No Information Medications Medication SIG (Take, Route, Frequency, Duration) Notes Start Date End Date Status valACYclovir HCl 500 MG TAKE 1 TABLET BY MOUTH TWICE A DAY FOR 30 DAYS; Duration: 30 Not-Taking Social History Tobacco Use: Social History Observation Description Date Details (start date - stop date) Never Smoker NA - NA Sex Assigned At : Social History Observation Description Sex Assigned At Female Household Question Answer Notes Number of adults in household: 1 Number of children in household: 1 Tobacco Use/Smoking Question Answer Notes Tobacco use: nonsmoker patient enter ed data Alcohol Screen (Audit-C) Question Answer Notes Did you have a drink containing alcohol in the p ast year? No Points 0 Interpretation Negative CAGE-AID Questionnaire (2018 Edition) Question Answer Notes Have you ever felt that you ought to cut down on your drinking or drug use? No patient entered data Have people annoyed you by c riticizing your drinking or drug use? No patient entered data Have you ever felt bad or gu ilty about your drinking or drug use? No patient entered data Have you ever had a drink or used drugs first thing in the morning to steady your nerves or to get rid of a hangover? No patient entered data PRAPARE Question Answer Notes Date Completed/Updated: 04/14/2023 alecia nt entered data What is your current housing situation? I have housing patient entered data Are you worried about losing your housing? Yes patient entered data What is the highest level of school that you have finished? 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 Check all that apply I do not have problems meeting my needs patient entered data Has lack of transportation k ept you from medical appointments, meetings, work or from getting things needed for daily living? No patient entered jeevan a How often do you see or talk to people that you care about and feel close to? (For example: talking to friends on the phone, visiting friends or family, going to uatsdin or club meetings) 1 or 2 times a week patient entered data How stressed are you? Stress is when someone feels tense, nervous, anxious, or can't sleep at night because their mind is troubled Very much patient entered data In the past year have you sp ent more than 2 nights in a row in a alf, longterm, correction center, or juvenile correctional facility? No patient entered data Do you feel physically and emotionally safe where you currently live? Yes patient entered data In the past year, have you b een afraid of your partner or ex-partner? No patient entered data Are you a refugee? No patient en tered data What country are you from? [place] judy caro entered data Problems Problem Type SNOMED Code ICD Code Onset Dates Problem Status W/U Status Risk Notes Problem Herpes simplex viral infection (10045741) Herpesviral infection, unspecified (B00.9) Active confirmed Problem Chronic pain (52638119) Other chronic pain (G89.29) Active confirmed Problem Viral disease of mother during (19604031760788) Other viral diseases complicating , unspecified trimester (O98.519) Active confirmed Problem Seasonal allergy (481888981) Seasonal allergies (J30.2) Active confirmed Problem Anxiety (54018579) Anxiety (F41.9) Active confirmed Problem Musculoskeletal pain (233089893) Musculoskeletal pain (M79.18) Active confirmed Problem Prior shoulder dystocia at delivery, antepartum (O09.299) Active confirmed Comment:1. Required multiple manouevers , baby cooled in NICU afterwards . 2. Primary c/section scheduled 07/28 1pm, Problem Cervicovaginal cytology: Low grade squamous intraepithelial lesion (371135115) LGSIL on Pap smear of cervix (R87.612) Active confirmed Problem Insomnia (466292306) Insomnia (G47.00) Active confirmed Problem care (regime/therapy) (782394674) care and examination (Z39.2) Active confirmed Problem Migraine (52507406) Migraine (G43.909) Active confirmed Problem Mixed anxiety and depressive disorder (510990256) Anxiety and depression (F41.9) Active confirmed Problem Chest pain (79208913) Chest pain, atypical (R07.89) Active confirmed Story:Righ t side - muscular skeletal vs other., Problem Muscle spasm (57476514) Muscle spasm (M62.838) Active confirmed Problem Polyhydramnios (18843006) Polyhydramnios, antepartum (O40.9XX0) Active confirmed Comment:1. Was not scheduled for rpt PARDEEP after last US. Will schedule today for Tuesday. Needs NST after PARDEEP., Problem Gravid uterus size for dates discrepancy (820563981) Uterine size date discrepancy, antepartum (O26.849) Active confirmed Comment:1. Size>dates . Has been getting serial growth US. Needs scheduled for next week or so. 2. NST/PARDEEP weekly. Will schedule., Problem Sinusitis (13949662) Sinusitis (J32.9) Active confirmed Comment:-p t has been having sinus issues for 2 weeks now -has not been tested for COVID - suggested she get tested. our test not accurate past 7 days -strep screen was negative -will call sinusitis and treat with amoxicilli n -also take claritin -Can also take vitamin C, cough drops, and honey as needed for sx relief. Increase clear fluids and rest. -f/u in 1 week if not getting better, Plan Of Treatment Pending Test Test Name Order Date COVID19 (SARS-CoV-2, NA) (31823) 020 Medical (General) History Medical History History ICD Code Anxiety Back pain, chronic Cerumen impaction, COMMENTS: Bilateral Chest pain, atypical, COMMENTS: Right si de - muscular skeletal vs other. Insomnia Muscle spasm Musculoskeletal pain Surgical History Surgery Date(Month/Year) Section - 1. LTCS d/t hx should er dystocia 07/28/2018 08/11/2022
[2025-06-11] MEDS: ORPHENADRINE 60 MG/2 ML VIAL IM (10:26)
--- OUTSIDE RECORDS SUMMARY | 2025-06-11 10:26 | XMS_ITS | Encounter Summary ---
Author Organization [facility] tem Address [id number] [address] [place] [address] Care Team Providers Care Blanket Winder Helper Name Role Phone Helene Shoemaker APRN-ASSISTANT TEACHER Primary Care Provide r Reason for Visit * Reason Comments Med Change Request Encounter Details Date Type Department Care Team (Late st Contact Info) Description 06/02/2025 Refill [facility] [address] [place] [address] Helene Shoemaker APRN-CNP [address] [place], [place] [phone] Social History Tobacco Use Types Packs/Day Years [...] Info) Description 06/18/2025 8:30 AM EDT Telemedicine [facility] Neurology, A Department of [facility] [address] [phone] Olena Joseph APRN-ASSISTANT TEACHER [address] [facility] [address] [place] [phone] 09/23/2025 11:00 AM EST [facility] [address] [place] [address] Vera Baca, DO [address] [facility] [address] [place] [address] documented as of this encounter Visit Diagnoses Not on filedocumented in this encounter Additional Health Concerns Assessment Noted Time PHQ-9 Depression Total Score: 0 05/06/20 11:12 AM EDT A Body Mass Index follow-up plan has been documented for the patient 05/06/2025 12:30 PM EDT documented as of this encounter Care Teams Blanket Winder Helper Relationship Specialty Start Date End Date Helene Shoemaker, ARMAMENT INSTALLER-ASSISTANT TEACHER [address] [place] [address] PCP - General Family Medicine 02/05/25 documented as of this encounter
[2025-06-11] MEDS: KETOROLAC TROMETHAMINE 60 MG/2 ML VIAL IM (10:29)
== END 2025-06-11 11:16 | disposition home or self-care (01) ==
PROVIDERS: Emergency Provider Emergency Medicine; PCP Nurse Practitioner Family
DX: S16.1XXA Strain of muscle, fascia and tendon at neck level, initial encounter (principal); X58.XXXA Exposure to other specified factors, initial encounter
CPT/HCPCS: 72040; 96372; 99284; J1885; J2360